=== PATIENT | male | born 1970 | race Caucasian/White ===

== ENCOUNTER 2017-06-10 18:16 | Emergency (ER) | payer SELFPAY ==
[~2017-06-10 18:16] MED LIST: AUGMENTIN 875 M1 TAB PO; MOTRIN800 MG PO; VICODIN 500 MG-1 TAB PO
[2017-06-10 19:26] LABS: BILIRUBIN NEGATIVE (NEGATIVE); BLOOD 3+ (NEGATIVE); CLARITY CLEAR (CLEAR); COLOR BROWN (YELLOW); GLUCOSE NEGATIVE (NEGATIVE); KETONE 1+ (NEGATIVE); NITRITE POSITIVE (NEGATIVE); PH 5.5 (5.0-9.0); SPECIFIC GRAVITY >= 1.030 (1.005-1.030)
[2017-06-10 19:29] LABS: LEUKO ESTERASE NEGATIVE (NEGATIVE)
[2017-06-10 19:35] LABS: RBC TNTC rbc/hpf (0-2)
[2017-06-10] MEDS ORDERED: MACROBID100 M1 PO (20:19)
[2017-06-10] MEDS ORDERED: PYRIDIUM100 MG PO (20:19)
== END 2017-06-10 20:35 | disposition home or self-care (01) ==
LOC: ED 18:16
PROVIDERS: Emergency Medicine
DX: N39.0 Urinary tract infection, site not specified (principal)

== ENCOUNTER 2017-11-28 12:12 | Emergency (ER) | payer OTHER ==
[~2017-11-28] VITALS: Wt 117.9 kg
[~2017-11-28 12:12] MED LIST changes: +MACROBID100 M1 PO; +PYRIDIUM100 MG PO
[2017-11-28] MEDS ORDERED: PREDNISONE20 M1 PO (13:13)
== END 2017-11-28 13:23 | disposition home or self-care (01) ==
LOC: ED 12:12
DX: J02.0 Streptococcal pharyngitis (principal); L25.9 Unspecified contact dermatitis, unspecified cause

== ENCOUNTER 2020-07-17 09:16 | Emergency (ER) | payer OTHER ==
[~2020-07-17] VITALS: Ht 177.8 cm; Wt 106.6 kg
[~2020-07-17 09:16] MED LIST changes: +PREDNISONE20 M1 PO
[2020-07-17 10:20] LABS: BASO # 0.1 10*3/uL (0.0-0.1); BASO % 0.6 % (0.0-1.0); EOS # 0.4 10*3/uL (0.0-0.4); EOS % 2.4 % (1.0-4.0); HEMATOCRIT 57.3 % (42.0-52.0); LYMPH # 1.9 10*3/uL (1.3-4.4); LYMPH % 13.5 % (27.0-41.0); MEAN CELL VOLUME 87.2 fl (80.0-94.0); MEAN CORPUSCULAR HGB 29.4 pg (27.0-31.0); MEAN CORPUSCULAR HGB CONC 33.7 g/dl (33.0-37.0); MEAN PLATELET VOLUME 10.1 fl (9.6-12.3); MONO # 0.9 10*3/uL (0.1-1.0); MONO % 5.9 % (3.0-9.0); NEUT % 76.9 % (47.0-73.0); PLATELET COUNT AUTOMATED 213 10*3/uL (130-400); RED BLOOD COUNT 6.57 10*6/uL (4.50-5.90); RED CELL DISTRI WIDTH 13.5 % (0-14.5); WHITE BLOOD COUNT 14.3 10*3/uL (4.8-10.8)
[2020-07-17 10:39] LABS: ALKALINE PHOSPHATASE 108 U/L (45-117); BUN 16 mg/dl (7-24); CHLORIDE 104 mmol/L (98-107); CREATININE 1.08 mg/dL (0.70-1.30); LIPASE 63 U/L (73-393); SGOT/AST 21 IU/L (3-35); SGPT/ALT 40 U/L (12-78); SODIUM 137 mmol/L (136-145); TOTAL PROTEIN 8.1 gm/dL (6.4-8.2)
[2020-07-17 10:41] LABS: TROPONIN I < 0.015 ng/ml (<0.045)
[2020-07-17 10:57] LABS: ACT PARTIAL THROMBO TIME 25.6 SECONDS (20.0-32.1)
== END 2020-07-17 12:59 | disposition home or self-care (01) ==
LOC: ED 09:16
PROVIDERS: Physician Assistant
DX: R73.9 Hyperglycemia, unspecified (principal); I10 Essential (primary) hypertension; Z87.891 Personal history of nicotine dependence